=== PATIENT | male | born 1995 | race Caucasian/White ===

== ENCOUNTER 2017-03-30 21:06 | Inpatient (IN) | payer BC ==
[2017-03-30] MEDS ORDERED: Sodium Chloride 0.9% 1000 ML 1,000 ML IV STA (21:16)
[2017-03-30] MEDS ORDERED: Geodon 20 MG INJ IM ONE ×2 (21:16→21:21)
[2017-03-30] MEDS ORDERED: VERSED 5 MG/5 ML IV ONE ×2 (21:17→23:12)
[2017-03-30] MEDS ORDERED: Sodium Chloride 0.9% 1000 ML 1,000 ML ONE (21:21)
[2017-03-30] MEDS ORDERED: VERSED 5 MG/5 ML ONE ×2 (21:21→23:13)
[2017-03-30 21:26] LABS: BASOPHIL % 0.6 % (0.0-0.4); Eosinophil % 0.3 % (0.00-5.0); Granulocytes % 66.6 % (36.0-66.0); Lymphocytes % 24.6 % (24.0-44.0); Mean Cell Volume 86.8 fl (78-100); Monocytes % 7.9 % (0.0-12.0); Platelet Count 209 K/mm3 (150-450); Red Blood Count 5.24 M/mm3 (4.1-5.6); Red Cell Distribution Width 13.6 % (11.5-14.0)
[2017-03-30 21:34] LABS: Lactic Acid 4.8 (0.4-2.0)
[2017-03-30 21:42] LABS: VBG CARBOXYHEMOGLOBIN 1.6 % T HGB (0.0-6.9); VBG HCO3- 25.4 meq/L (22-28); VBG HEMOGLOBIN 16.1; VBG O2 SATURATION 90.2 (95-100); VBG POTASSIUM 3.9 (3.5-5.1); VBG pH 7.38 (7.32-7.42)
[2017-03-30 21:55] LABS: ALBUMIN 4.6 g/dL (3.4-5.0); ALKALINE PHOSPHATASE 80 U/L (46-116); ANION GAP 19.4 MEQ/L (5-15); BLOOD UREA NITROGEN 19 mg/dL (9-20); CHLORIDE 105 mEq/L (98-107); Carbon Dioxide 23.6 mEq/L (21-32); Glucose 107 MG/DL (70-110); Potassium 4.6 mEq/L (3.5-5.1); SGOT/AST 47 U/L (15-37); SGPT/ALT 38 U/L (12-78); SODIUM 143 mEq/L (136-145)
[2017-03-30 21:56] LABS: ETHYL ALCOHOL < 0.010 % (0.00-0.01)
[2017-03-30 21:58] LABS: ACETAMINOPHEN 276.5 ug/ml (10-30)
[2017-03-30] MEDS ORDERED: Lactated Ringers 1,000 ML IV ONE ×2 (22:02→22:48)
[2017-03-30 22:03] LABS: INR 1.12 (0.8-3.0); PROTIME 12.5 SECONDS (8.83-12.87)
[2017-03-30 22:24] LABS: ADD URINE CULTURE? NO (NO); Bacteria RARE /HPF (NEGATIVE); Bilirubin NEGATIVE (NEGATIVE); Blood 50 Ery/ul (0-5); COMPLETE URINE MICROSCOPIC? YES; Collection Type CATH; Glucose NEGATIVE (NEGATIVE); Leukocyte Esterase NEGATIVE (NEGATIVE)
--- NOTE | 2017-03-30 23:25 | ERPHSYRPT ---
- History of Present Illness Time Seen by Provider: 03/30/17 21:16 Source: family (mother), EMS Patient Subjective Stated Complaint: per mother, "I came home and found him on the floor in his bedroom face door. his speech was slurring and very disoriented. i saw him before i went to [employer] and he went to work at about 8: 30. he was normal than" Triage Nursing Assessment: GSC 15, unappropriate answers to questions, skin pink warm dry, moving all extremities, PERRLA Physician History: CC: found down Hx: 22 y/o healthy male patient found at home on floor by jerman. Unsure circumstances but he had been at the store looking ion the medication isle today and had texted a picture of a blue pill to a friend. No hx of drug use. No sign of injury. Pt gives no hx. No witnessed seizures. EMS noted tachycardia. Pt unable to give hx. Timing/Duration: today Severity: severe Allergies/Adverse Reactions: No Known Drug Allergies Allergy (Unverified 09/09/12 20:35) Home Medications: No Home Meds 09/09/12 [History] Hx Tetanus, Diphtheria Vaccination/Date Given: Yes Hx Influenza Vaccination/Date Given: No Hx Pneumococcal Vaccination/Date Given: No - Review of Systems Constitutional: No Fever Eyes: No Symptoms Respiratory: No Cough, No Dyspnea Cardiac: No Chest Pain Abdominal/Gastrointestinal: No Abdominal Pain, No Nausea, No Vomiting, No Diarrhea Musculoskeletal: No Injury Skin: No Rash Neurological: No Seizure All Other Systems: Unable due to condition - Past Medical History Pertinent Past Medical History: No Neurological History: No Pertinent History ENT History: No Pertinent History Cardiac History: No Pertinent History Respiratory History: No Pertinent History Endocrine Medical History: No Pertinent History Musculoskeletal History: No Pertinent History GI Medical History: No Pertinent History History: No Pertinent History Psycho-Social History: No Pertinent History Male Reproductive Disorders: No Pertinent History - Past Surgical History Past Surgical History: Yes Neuro Surgical History: No Pertinent History Cardiac: No Pertinent History Respiratory: No Pertinent History Gastrointestinal: No Pertinent History Genitourinary: No Pertinent History Musculoskeletal: Other Male Surgical History: No Pertinent History Other Surgical History: correted "flat feet" in second grade - Social History Smoking Status: Never smoker Exposure to second hand smoke: No Drug Use: none 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) - Nursing Vital Signs Nursing Vital Signs: Initial Vital Signs Pulse Rate 136 H 03/30/17 21:30 Respiratory Rate 28 H 03/30/17 21:30 Blood Pressure 172/143 03/30/17 21:30 O2 Sat by Pulse Oximetry 98 03/30/17 21:30 Pain Scale Pain Intensity 0 - Physical Exam General Appearance: alert (combative, tachycardia, agitated) Eye Exam: PERRL/EOMI Ears, Nose, Throat Exam: moist mucous membranes Neck Exam: normal inspection, supple Respiratory Exam: normal breath sounds Cardiovascular Exam: regular rate/rhythm Gastrointestinal/Abdomen Exam: soft, No tenderness, No distention Male Genitalia Exam: normal genitalia Back Exam: normal inspection Extremity Exam: normal inspection, normal range of motion Neurologic Exam: alert, other (uncooperative, moves all extremities) Skin Exam: warm, dry, No rash SpO2 Interpretation: normal SpO2: 97 Oxygen Delivery: Room Air - Course Nursing assessment & vital signs reviewed: Yes EKG Interpreted by Me: RATE ([id number]), Sinus Tach, NORMAL AXIS, NORMAL INTERVALS ( [id number]), NORMAL QRS, NORMAL ST-T - Radiology Exams cxr X-ray Interpretation: Reviewed by me, Negative - CT Exams head CT Interpretation: Negative, Tele-radiologist Report cervical CT Interpretation: Negative, Tele-radiologist Report Ordered Tests: Active Orders 24 hr Category Date Time Status CO2 Monitoring STAT Care 03/30/17 21:17 Completed Machine Ii Coremaker STAT Care 03/30/17 21:16 Active Machine Ii Coremaker STAT Care 03/30/17 21:17 Active EKG-ER Only STAT Care 03/30/17 21:16 Active IV Insertion STAT Care 03/30/17 21:16 Active NPO (ED) STAT Care 03/30/17 21:17 Active Pulse Oximetry (ED) STAT Care 03/30/17 21:17 Active CERVICAL SPINE WO CONTRAST [CT] Stat Exams 03/30/17 21:41 Taken CHEST 1 VIEW (PORTABLE) Stat Exams 03/30/17 23:27 Taken HEAD WITHOUT CONTRAST [CT] Stat Exams 03/30/17 21:41 Taken ACETAMINOPHEN Stat Lab 03/30/17 21:20 Completed ACETAMINOPHEN Stat Lab 03/30/17 23:30 Completed CBC W DIFF Stat Lab 03/30/17 21:20 Completed CK-Creatinine Phosphokinase Stat Lab 03/30/17 21:20 Completed CMP Stat Lab 03/30/17 21:20 Completed ETHYL ALCOHOL Stat Lab 03/30/17 21:20 Completed Lactic Acid Stat Lab 03/30/17 21:25 Completed Lactic Acid Stat Lab 03/30/17 23:30 Completed PROTIME WITH INR Stat Lab 03/30/17 21:30 Completed SALICYLATE Stat Lab 03/30/17 21:20 Completed UA W/ MICROSCOPIC Stat Lab 03/30/17 21:41 Completed Urine Triage Profile Stat Lab 03/30/17 21:41 Completed VENOUS BLOOD GAS Stat Lab 03/30/17 21:18 Completed Medication Summary Generic Name Dose Route Start Last Admin Trade Name Freq PRN Reason Stop Dose Admin Acetylcysteine 4,200 mg/ 521 mls @ 125 mls/hr 03/31/17 02:00 Dextrose IV 03/31/17 06:10 .Q4H11M ONE Acetylcysteine 12,600 mg/ 313 mls @ 250 mls/hr 03/31/17 00:17 Dextrose IV 03/31/17 01:32 .Q1H16M ONE Acetylcysteine 8,400 mg/ 1,042 mls @ 62.5 mls/hr 03/31/17 06:00 Dextrose IV 03/31/17 22:40 .[id number] ONE Discontinued Medications Generic Name Dose Route Start Last Admin Trade Name Freq PRN Reason Stop Dose Admin Sodium Chloride 1,000 mls @ 999 mls/hr 03/30/17 21:16 03/30/17 21:35 Sodium Chloride 0.9% 1000 Ml IV 03/30/17 22:16 999 mls/hr .Q1H1M STA Administration Sodium Chloride Confirm 03/30/17 21:21 Sodium Chloride 0.9% 1000 Ml Administered 03/30/17 21:22 Dose 1,000 mls @ ud .ROUTE .STK-MED ONE Lactated Ringer's 1,000 mls @ 999 mls/hr 03/30/17 22:02 03/30/17 22:49 Lactated Ringers IV 03/30/17 23:02 999 mls/hr .Q1H1M ONE Administration Lactated Ringer's Confirm 03/30/17 22:48 Lactated Ringers Administered 03/30/17 22:49 Dose 1,000 mls @ ud IV .STK-MED ONE Midazolam HCl 2.5 mg 03/30/17 21:17 03/30/17 21:28 Versed 5 Mg/5 Ml IV 03/30/17 21:18 2.5 mg STAT ONE Administration Midazolam HCl Confirm 03/30/17 21:21 Versed 5 Mg/5 Ml Administered 03/30/17 21:22 Dose 5 mg .ROUTE .STK-MED ONE Midazolam HCl 1 mg 03/30/17 23:12 03/30/17 23:17 Versed 5 Mg/5 Ml IV 03/30/17 23:13 1 mg STAT ONE Administration Midazolam HCl Confirm 03/30/17 23:13 Versed 5 Mg/5 Ml Administered 03/30/17 23:14 Dose 5 mg .ROUTE .STK-MED ONE Midazolam HCl 1 mg 03/31/17 00:23 Versed 5 Mg/5 Ml IV 03/31/17 00:24 STAT ONE Midazolam HCl Confirm 03/31/17 00:29 Versed 5 Mg/5 Ml Administered 03/31/17 00:30 Dose 5 mg .ROUTE .STK-MED ONE Ziprasidone 10 mg 03/30/17 21:16 03/30/17 21:27 Geodon 20 Mg Inj IM 03/30/17 21:17 10 mg STAT ONE Administration Ziprasidone Confirm 03/30/17 21:21 Geodon 20 Mg Inj Administered 03/30/17 21:22 Dose 20 mg IM .STK-MED ONE Lab/Rad Data: Laboratory Result Diagrams 03/30/17 21:20 03/30/17 21:20 Laboratory Results 03/30/17 03/30/17 03/30/17 Range/Units 23:30 23:30 21:41 WBC (4.0-10.5) K/mm3 RBC (4.1-5.6) M/mm3 Hgb (12.5-18.0) gm/dl Hct (42-50) % MCV (78-100) fl MCH (26-32) pg MCHC (32-36) g/dl RDW (11.5-14.0) % Plt Count (150-450) K/mm3 MPV (6-9.5) fl Gran % (36.0-66.0) % Lymphocytes % (24.0-44.0) % Monocytes % (0.0-12.0) % Eosinophils % (0.00-5.0) % Basophils % (0.0-0.4) % Basophils # (0-0.4) INR (0.8-3.0) VBG pH (7.32-7.42) VBG pCO2 at Pat Temp (42-55) mm/Hg VBG pO2 at Pat Temp (25-40) mm/Hg VBG HCO3 (22-28) meq/L VBG O2 Sat ([place]) (95-100) VBG Base Excess (-2.0-2.0) VBG Hemoglobin VBG Carboxyhemoglobin (0.0-6.9) % T HGB POC Potassium (3.5-5.1) Sodium (136-145) mEq/L Potassium (3.5-5.1) mEq/L Chloride (98-107) mEq/L Carbon Dioxide (21-32) mEq/L Anion Gap (5-15) MEQ/L BUN (9-20) mg/dL Creatinine (0.55-1.30) mg/dl Estimated GFR ML/MIN Glucose (70-110) MG/DL Lactic Acid 1.8 (0.4-2.0) Calcium (8.5-10.1) mg/dL Total Bilirubin (0.2-1.0) mg/dL AST (15-37) U/L ALT (12-78) U/L Alkaline Phosphatase (46-116) U/L Creatine Kinase (39-308) U/L Serum Total Protein (6.4-8.2) gm/dL Albumin (3.4-5.0) g/dL Ur Collection Type Urine Color (YELLOW) Urine Appearance (CLEAR) Urine pH (5-6) Ur Specific [place] (1.005-1.025) Urine Protein (Negative) Urine Ketones (NEGATIVE) Urine Blood (0-5) Carlos Manuel/ul Urine Nitrite (NEGATIVE) Urine Bilirubin (NEGATIVE) Urine Urobilinogen (0-1) mg/dL Ur Leukocyte Esterase (NEGATIVE) Urine Microscopic RBC (0-2) /HPF Urine Bacteria (NEGATIVE) /HPF Urine Glucose (NEGATIVE) mg/dL Salicylates (2.8-20.0) mg/dl Urine Opiates Level NEG. (NEGATIVE) Ur Methadone NEG. (NEGATIVE) Acetaminophen 270.1 H* (10-30) ug/ml Urine Barbiturates NEG. (NEGATIVE) Ur Phencyclidine (PCP) NEG. (NEGATIVE) Urine Amphetamine NEG. (NEGATIVE) U Benzodiazepine Level NEG. (NEGATIVE) Urine Cocaine NEG. (NEGATIVE) Urine Marijuana (THC) NEG. (NEGATIVE) Ethyl Alcohol (0.00-0.01) % Specimen Received 03/30/17 03/30/17 03/30/17 Range/Units 21:41 21:30 21:25 WBC (4.0-10.5) K/mm3 RBC (4.1-5.6) M/mm3 Hgb (12.5-18.0) gm/dl Hct (42-50) % MCV (78-100) fl MCH (26-32) pg MCHC (32-36) g/dl RDW (11.5-14.0) % Plt Count (150-450) K/mm3 MPV (6-9.5) fl Gran % (36.0-66.0) % Lymphocytes % (24.0-44.0) % Monocytes % (0.0-12.0) % Eosinophils % (0.00-5.0) % Basophils % (0.0-0.4) % Basophils # (0-0.4) INR 1.12 (0.8-3.0) VBG pH (7.32-7.42) VBG pCO2 at Pat Temp (42-55) mm/Hg VBG pO2 at Pat Temp (25-40) mm/Hg VBG HCO3 (22-28) meq/L VBG O2 Sat ([place]) (95-100) VBG Base Excess (-2.0-2.0) VBG Hemoglobin VBG Carboxyhemoglobin (0.0-6.9) % T HGB POC Potassium (3.5-5.1) Sodium (136-145) mEq/L Potassium (3.5-5.1) mEq/L Chloride (98-107) mEq/L Carbon Dioxide (21-32) mEq/L Anion Gap (5-15) MEQ/L BUN (9-20) mg/dL Creatinine (0.55-1.30) mg/dl Estimated GFR ML/MIN Glucose (70-110) MG/DL Lactic Acid 4.8 H (0.4-2.0) Calcium (8.5-10.1) mg/dL Total Bilirubin (0.2-1.0) mg/dL AST (15-37) U/L ALT (12-78) U/L Alkaline Phosphatase (46-116) U/L Creatine Kinase (39-308) U/L Serum Total Protein (6.4-8.2) gm/dL Albumin (3.4-5.0) g/dL Ur Collection Type CATH Urine Color YELLOW (YELLOW) Urine Appearance CLEAR (CLEAR) Urine pH 8.0 (5-6) Ur Specific [place] 1.005 (1.005-1.025) Urine Protein NEGATIVE (Negative) Urine Ketones NEGATIVE (NEGATIVE) Urine Blood 50 (0-5) Carlos Manuel/ul Urine Nitrite NEGATIVE (NEGATIVE) Urine Bilirubin NEGATIVE (NEGATIVE) Urine Urobilinogen NORMAL (0-1) mg/dL Ur Leukocyte Esterase NEGATIVE (NEGATIVE) Urine Microscopic RBC 0-2 (0-2) /HPF Urine Bacteria RARE (NEGATIVE) /HPF Urine Glucose NEGATIVE (NEGATIVE) mg/dL Salicylates (2.8-20.0) mg/dl Urine Opiates Level (NEGATIVE) Ur Methadone (NEGATIVE) Acetaminophen (10-30) ug/ml Urine Barbiturates (NEGATIVE) Ur Phencyclidine (PCP) (NEGATIVE) Urine Amphetamine (NEGATIVE) U Benzodiazepine Level (NEGATIVE) Urine Cocaine (NEGATIVE) Urine Marijuana (THC) (NEGATIVE) Ethyl Alcohol (0.00-0.01) % Specimen Received 03/30/17:2141 03/30/17 03/30/17 03/30/17 Range/Units 21:20 21:20 21:20 WBC 8.0 (4.0-10.5) K/mm3 RBC 5.24 (4.1-5.6) M/mm3 Hgb 15.2 (12.5-18.0) gm/dl Hct 45.5 (42-50) % MCV 86.8 (78-100) fl MCH 29.0 (26-32) pg MCHC 33.4 (32-36) g/dl RDW 13.6 (11.5-14.0) % Plt Count 209 (150-450) K/mm3 MPV 11.0 H (6-9.5) fl Gran % 66.6 H (36.0-66.0) % Lymphocytes % 24.6 (24.0-44.0) % Monocytes % 7.9 (0.0-12.0) % Eosinophils % 0.3 (0.00-5.0) % Basophils % 0.6 (0.0-0.4) % Basophils # 0.05 (0-0.4) INR (0.8-3.0) VBG pH (7.32-7.42) VBG pCO2 at Pat Temp (42-55) mm/Hg VBG pO2 at Pat Temp (25-40) mm/Hg VBG HCO3 (22-28) meq/L VBG O2 Sat ([place]) (95-100) VBG Base Excess (-2.0-2.0) VBG Hemoglobin VBG Carboxyhemoglobin (0.0-6.9) % T HGB POC Potassium (3.5-5.1) Sodium 143 (136-145) mEq/L Potassium 4.6 (3.5-5.1) mEq/L Chloride 105 (98-107) mEq/L Carbon Dioxide 23.6 (21-32) mEq/L Anion Gap 19.4 H (5-15) MEQ/L BUN 19 (9-20) mg/dL Creatinine 1.40 H (0.55-1.30) mg/dl Estimated GFR > 60 ML/MIN Glucose 107 (70-110) MG/DL Lactic Acid (0.4-2.0) Calcium 9.2 (8.5-10.1) mg/dL Total Bilirubin 0.40 (0.2-1.0) mg/dL AST 47 H (15-37) U/L ALT 38 (12-78) U/L Alkaline Phosphatase 80 (46-116) U/L Creatine Kinase 919 H (39-308) U/L Serum Total Protein 8.0 (6.4-8.2) gm/dL Albumin 4.6 (3.4-5.0) g/dL Ur Collection Type Urine Color (YELLOW) Urine Appearance (CLEAR) Urine pH (5-6) Ur Specific [place] (1.005-1.025) Urine Protein (Negative) Urine Ketones (NEGATIVE) Urine Blood (0-5) Carlos Manuel/ul Urine Nitrite (NEGATIVE) Urine Bilirubin (NEGATIVE) Urine Urobilinogen (0-1) mg/dL Ur Leukocyte Esterase (NEGATIVE) Urine Microscopic RBC (0-2) /HPF Urine Bacteria (NEGATIVE) /HPF Urine Glucose (NEGATIVE) mg/dL Salicylates < 2.8 L (2.8-20.0) mg/dl Urine Opiates Level (NEGATIVE) Ur Methadone (NEGATIVE) Acetaminophen 276.5 H* (10-30) ug/ml Urine Barbiturates (NEGATIVE) Ur Phencyclidine (PCP) (NEGATIVE) Urine Amphetamine (NEGATIVE) U Benzodiazepine Level (NEGATIVE) Urine Cocaine (NEGATIVE) Urine Marijuana (THC) (NEGATIVE) Ethyl Alcohol < 0.010 (0.00-0.01) % Specimen Received 03/30/17 Range/Units 21:18 WBC (4.0-10.5) K/mm3 RBC (4.1-5.6) M/mm3 Hgb (12.5-18.0) gm/dl Hct (42-50) % MCV (78-100) fl MCH (26-32) pg MCHC (32-36) g/dl RDW (11.5-14.0) % Plt Count (150-450) K/mm3 MPV (6-9.5) fl Gran % (36.0-66.0) % Lymphocytes % (24.0-44.0) % Monocytes % (0.0-12.0) % Eosinophils % (0.00-5.0) % Basophils % (0.0-0.4) % Basophils # (0-0.4) INR (0.8-3.0) VBG pH 7.38 (7.32-7.42) VBG pCO2 at Pat Temp 43 (42-55) mm/Hg VBG pO2 at Pat Temp 52 H (25-40) mm/Hg VBG HCO3 25.4 (22-28) meq/L VBG O2 Sat ([place]) 90.2 L (95-100) VBG Base Excess 0.0 (-2.0-2.0) VBG Hemoglobin 16.1 VBG Carboxyhemoglobin 1.6 (0.0-6.9) % T HGB POC Potassium 3.9 (3.5-5.1) Sodium (136-145) mEq/L Potassium (3.5-5.1) mEq/L Chloride (98-107) mEq/L Carbon Dioxide (21-32) mEq/L Anion Gap (5-15) MEQ/L BUN (9-20) mg/dL Creatinine (0.55-1.30) mg/dl Estimated GFR ML/MIN Glucose (70-110) MG/DL Lactic Acid (0.4-2.0) Calcium (8.5-10.1) mg/dL Total Bilirubin (0.2-1.0) mg/dL AST (15-37) U/L ALT (12-78) U/L Alkaline Phosphatase (46-116) U/L Creatine Kinase (39-308) U/L Serum Total Protein (6.4-8.2) gm/dL Albumin (3.4-5.0) g/dL Ur Collection Type Urine Color (YELLOW) Urine Appearance (CLEAR) Urine pH (5-6) Ur Specific [place] (1.005-1.025) Urine Protein (Negative) Urine Ketones (NEGATIVE) Urine Blood (0-5) Carlos Manuel/ul Urine Nitrite (NEGATIVE) Urine Bilirubin (NEGATIVE) Urine Urobilinogen (0-1) mg/dL Ur Leukocyte Esterase (NEGATIVE) Urine Microscopic RBC (0-2) /HPF Urine Bacteria (NEGATIVE) /HPF Urine Glucose (NEGATIVE) mg/dL Salicylates (2.8-20.0) mg/dl Urine Opiates Level (NEGATIVE) Ur Methadone (NEGATIVE) Acetaminophen (10-30) ug/ml Urine Barbiturates (NEGATIVE) Ur Phencyclidine (PCP) (NEGATIVE) Urine Amphetamine (NEGATIVE) U Benzodiazepine Level (NEGATIVE) Urine Cocaine (NEGATIVE) Urine Marijuana (THC) (NEGATIVE) Ethyl Alcohol (0.00-0.01) % Specimen Received - Progress Progress Note: 03/30/17 23:24 Pt was given IM geodon and IV versed with improvement in agitation. Afebrile and without any focal source if infection. CT neg. IVF bolus given and HR improved. Will recheck APAP and consult poison center. He appears to have ingestion causing agitation and tachycardia. 03/31/17 00:34 APAP still elevated. Intermittent tachy and hypertensive. Called [facility] and they advised start IV acetadote, benzos. Called Dr Prather for admission. No sign of infection. Counseled pt/family regarding: lab results, diagnosis, need for follow-up, rad results - Departure Time of Disposition: 00:35 Departure Disposition: In-patient Admission (ICU) Clinical Impression: Acetaminophen toxicity, Altered mental status Condition: Serious Critical Care Time: Yes Critical Care Time(excluding separately billable procedures): 30-74 minutes
[2017-03-31] MEDS ORDERED: WATER IV ONE ×3 (00:17→06:00)
[2017-03-31] MEDS ORDERED: ACETADOTE IV ONE ×3 (00:17→06:00)
[2017-03-31] MEDS ORDERED: DEXTROSE IV ONE ×3 (00:17→06:00)
[2017-03-31] MEDS ORDERED: VERSED 5 MG/5 ML IV ONE (00:23)
[2017-03-31] MEDS ORDERED: VERSED 5 MG/5 ML ONE (00:29)
[2017-03-31] MEDS ORDERED: Dextrose 5%/Water IV Soln. 250 ML 250 ML IV ONE (00:37)
[2017-03-31] MEDS ORDERED: Acetadote IV 200 MG/ML IV ONE ×2 (00:37→03:44)
[2017-03-31] MEDS ORDERED: Dextrose 5%/Water IV Soln. 500 ML 500 ML IV ONE (00:38)
[2017-03-31] MEDS ORDERED: Ativan 2 MG/1 ML VIAL ONE (01:01)
[2017-03-31] MEDS: Dextrose 5%-Lr IV Solution 1000 ML 1,000 ML IV SCH ×3 (01:41→17:59)
[2017-03-31] MEDS: VALIUM 10 MG/2 ML SYRINGE IV PRN ×5 (02:51→10:29)
[2017-03-31] MEDS ORDERED: Dextrose 5%/Water IV Soln. 1000 ML 1,000 ML IV ONE (03:32)
[2017-03-31] MEDS ORDERED: Phenergan 25 MG INJ IV PRN (05:28)
--- NOTE | 2017-03-31 08:12 | PCM.HP ---
History of Present Illness - Chief Complaint Chief Complaint: AMS, Apap toxicity History of Present Illness: is a 22 year old male who was found down by family with an unknown ingestion apparently. He was brought to the ER, brain and neck CT were negative. Acetaminophen level was elevated and he was agitated, he has a previous history of depression in the past but otherwise is healthy and has no medical history. Currently he is not on any medication, his step-father apparently found a bottle of generic acetaminophen PM but again unsure how much he took. - Review of Systems All Other Systems: Unable due to condition (does not answer questions appropriately, having visual hallucinations) Medications & Allergies Home Medications: Home Medication List No Reportable Medications [No Reported Medications] 03/31/17 [History Confirmed 03/31/17] Allergies/Adverse Reactions: Allergies Allergy/AdvReac Type Severity Reaction Status Date / Time No Known Drug Allergies Allergy Unverified 09/09/12 20:35 - Past Medical History Past Medical History: No Neurological History: No Pertinent History ENT History: No Pertinent History Cardiac History: No Pertinent History Respiratory History: No Pertinent History Endocrine Medical History: No Pertinent History Musculoskelatal History: No Pertinent History GI Medical History: No Pertinent History History: No Pertinent History Pyscho-Social History: No Pertinent History Male Reproductive Disorders: No Pertinent History - Past Surgical History Past Surgical History: Yes Neuro Surgical History: No Pertinent History Cardiac History: No Pertinent History Respiratory Surgery: No Pertinent History GI Surgical History: No Pertinent History Genitourinary Surgical Hx: No Pertinent History Musculskeletal Surgical Hx: Other Male Surgical History: No Pertinent History Other Surgical History: correted "flat feet" in second grade - Social History Smoking Status: Never smoker Exposure to second hand smoke: No Alcohol: None Drug Use: none - Physical Exam Vital Signs: Vital Signs - 24 hr Temp Pulse Resp BP Pulse Ox 03/31/17 06:00 97.5 F 104 H 26 H 148/82 96 03/31/17 04:15 92 H 03/31/17 04:07 99 H 14 97 03/31/17 04:00 92 H 20 130/86 96 03/31/17 02:04 97.8 F 97 H 29 H 140/85 97 General Appearance: no apparent distress, alert Neurologic Exam: disoriented Eye Exam: PERRL/EOMI, eyes nml inspection Respiratory Exam: normal breath sounds, lungs clear, No respiratory distress Cardiovascular Exam: regular rate/rhythm, normal heart sounds, normal peripheral pulses Gastrointestinal/Abdomen Exam: soft, normal bowel sounds, No tenderness, No mass Extremity Exam: normal inspection, normal range of motion, pelvis stable Skin Exam: normal color, warm, dry, No rash Assessment/Plan (1) Agitation requiring sedation protocol Current Visit: Yes Status: Acute Assessment & Plan: appears secondary to benadryl toxicity, poison control was consulted in ER and recommended treatment with IV benzodiazepenes for agitation and acetadote, will continue to monitor Code(s): R45.1 - RESTLESSNESS AND AGITATION (2) Acetaminophen toxicity Current Visit: Yes Status: Acute Assessment & Plan: repeat LFT's Code(s): T39.1X1A - POISONING BY 4-AMINOPHENOL DERIVATIVES, ACCIDENTAL, INIT (3) Altered mental status Current Visit: Yes Status: Acute Code(s): R41.82 - ALTERED MENTAL STATUS, UNSPECIFIED
--- NOTE | 2017-03-31 08:37 | XRAY ---
Indication: Altered mental status. Comparison: None Portable apical lordotic chest underinflated and clear. Heart and mediastinal structures within normal limits. Bony thorax intact. Impression: Nonacute underinflated chest.
--- NOTE | 2017-03-31 08:39 | XRAY ---
Indication: Altered mental status. Found on floor. Slurred speech. Multiple contiguous axial images obtained through the head without contrast. Comparison: None Normal appearing brain parenchyma, ventricles, and bony calvarium. Visualized paranasal sinuses and mastoid air cells are clear. Impression: Normal CT head without contrast exam. Comment: Preliminary interpretation was made by [facility]. No discrepancy. CT DI 62.53
--- NOTE | 2017-03-31 08:39 | XRAY ---
Indication: Altered mental status. Found on floor. Slurred speech. Multiple contiguous axial images obtained through the cervical spine. Sagittal and coronal reformatted images obtained. Comparison: None Axial negative for acute fracture, suspicious bony lesions, or spinal canal stenosis. Sagittal and coronal reformatted images demonstrate normal alignment with disc spaces preserved. No acute compression fracture, subluxation, or jumped facet. Normal appearing craniocervical junction. Visualized noncontrasted soft tissues are unremarkable. Impression: Negative CT cervical spine. Comment: Preliminary interpretation was made by [facility]. No discrepancy. CT DI 44.77
[2017-03-31 09:58] LABS: ALKALINE PHOSPHATASE 70 U/L (46-116); ANION GAP 16.6 MEQ/L (5-15); BLOOD UREA NITROGEN 12 mg/dL (9-20); CHLORIDE 106 mEq/L (98-107); Carbon Dioxide 22.9 mEq/L (21-32); Glucose 177 MG/DL (70-110); Potassium 3.3 mEq/L (3.5-5.1); SGOT/AST 373 U/L (15-37); SGPT/ALT 346 U/L (12-78); SODIUM 142 mEq/L (136-145); Total Protein 7.1 gm/dL (6.4-8.2)
[2017-03-31] MEDS ORDERED: Ativan 2 MG/1 ML VIAL IV PRN (11:03)
[2017-03-31] MEDS ORDERED: Geodon 20 MG INJ IM ONE ×2 (12:42→14:00)
[2017-03-31 22:23] LABS: INR 1.6 (0.8-3.0); PROTIME 17.9 SECONDS (8.83-12.87)
[2017-03-31 23:45] LABS: ALBUMIN 3.7 g/dL (3.4-5.0); ALKALINE PHOSPHATASE 70 U/L (46-116); BLOOD UREA NITROGEN 7 mg/dL (9-20); CHLORIDE 109 mEq/L (98-107); Carbon Dioxide 22.4 mEq/L (21-32); Glucose 128 MG/DL (70-110); Potassium 3.5 mEq/L (3.5-5.1); SGOT/AST 123 U/L (15-37); SGPT/ALT 250 U/L (12-78); SODIUM 145 mEq/L (136-145); Total Protein 6.5 gm/dL (6.4-8.2)
[2017-04-01] MEDS: Dextrose 5%-Lr IV Solution 1000 ML 1,000 ML IV SCH ×3 (01:33→16:35)
[2017-04-01 05:28] LABS: BASOPHIL % 0.3 % (0.0-0.4); Eosinophil % 0.6 % (0.00-5.0); Lymphocytes % 18.1 % (24.0-44.0); Mean Cell Volume 87.4 fl (78-100); Mean Corpuscular Hemoglobin 28.6 pg (26-32); Mean Platelet Volume 11.3 fl (6-9.5); Platelet Count 188 K/mm3 (150-450); Red Blood Count 4.76 M/mm3 (4.1-5.6); Red Cell Distribution Width 13.8 % (11.5-14.0); White Blood Count 9.6 K/mm3 (4.0-10.5)
[2017-04-01 06:05] LABS: ALBUMIN 3.5 g/dL (3.4-5.0); ALKALINE PHOSPHATASE 65 U/L (46-116); ANION GAP 12.3 MEQ/L (5-15); BLOOD UREA NITROGEN 6 mg/dL (9-20); CHLORIDE 109 mEq/L (98-107); Carbon Dioxide 25.7 mEq/L (21-32); Glucose 108 MG/DL (70-110); MAGNESIUM 1.7 mg/dL (1.8-2.4); Potassium 4.1 mEq/L (3.5-5.1); SGOT/AST 127 U/L (15-37); SGPT/ALT 243 U/L (12-78); SODIUM 143 mEq/L (136-145); Total Protein 6.3 gm/dL (6.4-8.2)
--- NOTE | 2017-04-01 09:02 | PCM.NOTE ---
Date and Time: 04/01/17 0857 Subjective Assessment: Pt is alert and oriented this morning. He remembers very little of the past 2 days. His dad is present in the room and was with the pt when he bought the tylenol pm. Pt was taken to the ER about 4 hours later. Pt's dad notes that pt had looked up the effects of Tylenol overdose on the internet about a week prior to the ingestion. Pt does admit to a previous hx of suicide attempt 5-6 years ago. He says the antidepressants he has been prescribed in the past make him feel "loopy." - Review of Systems Constitutional: No Fever Abdominal/Gastrointestinal: No Abdominal Pain Objective Exam General Appearance: no apparent distress Neurologic Exam: alert, oriented x 3, cooperative Skin Exam: normal color, warm, dry Respiratory Exam: normal breath sounds, lungs clear, No crackles/rales, No rhonchi, No wheezing Cardiovascular Exam: regular rate/rhythm, normal heart sounds, No murmur Gastrointestinal/Abdomen Exam: soft, normal bowel sounds, No tenderness, No distention, No mass, No guarding, No rebound Extremity Exam: normal inspection, No pedal edema, No swelling OBJECTIVE DATA Vital Signs: Vital Signs - 24 hr Temp Pulse Resp BP Pulse Ox 04/01/17 08:00 98.8 F 92 H 19 145/75 97 04/01/17 04:00 97.7 F 73 18 145/75 04/01/17 00:01 71 04/01/17 00:00 98.2 F 71 21 177/82 03/31/17 22:00 73 23 03/31/17 20:00 98.3 F 91 H 24 156/86 98 03/31/17 17:56 98.5 F 96 H 20 153/88 100 03/31/17 16:00 98.9 F 97 H 20 154/88 97 03/31/17 14:15 89 20 98 03/31/17 12:00 98.3 F 100 H 24 144/87 98 03/31/17 10:00 99.1 F 100 H 24 169/84 98 Pain Assessment - Last Documented Pain Intensity 0 [facility] Intake and Output: Intake & Output 03/29/17 03/30/17 03/31/17 04/01/17 11:59 11:59 11:59 11:59 Intake Total 1050 5285 Output Total 300 1000 Balance 750 4285 Weight 84.725 kg Lab Results: Lab Results-Last 24 Hours 03/31/17 03/31/17 03/31/17 Range/Units 08:40 21:30 21:33 WBC (4.0-10.5) K/mm3 RBC (4.1-5.6) M/mm3 Hgb (12.5-18.0) gm/dl Hct (42-50) % MCV (78-100) fl MCH (26-32) pg MCHC (32-36) g/dl RDW (11.5-14.0) % Plt Count (150-450) K/mm3 MPV (6-9.5) fl Gran % (36.0-66.0) % Lymphocytes % (24.0-44.0) % Monocytes % (0.0-12.0) % Eosinophils % (0.00-5.0) % Basophils % (0.0-0.4) % Basophils # (0-0.4) INR (0.8-3.0) Sodium 142 145 (136-145) mEq/L Potassium 3.3 L 3.5 (3.5-5.1) mEq/L Chloride 106 109 H (98-107) mEq/L Carbon Dioxide 22.9 22.4 (21-32) mEq/L Anion Gap 16.6 H 17.0 H (5-15) MEQ/L BUN 12 7 L (9-20) mg/dL Creatinine 1.25 1.29 (0.55-1.30) mg/dl Estimated GFR > 60 > 60 ML/MIN Glucose 177 H 128 H (70-110) MG/DL Calcium 9.0 8.8 (8.5-10.1) mg/dL Magnesium (1.8-2.4) mg/dL Total Bilirubin 1.10 H 0.70 (0.2-1.0) mg/dL AST 373 H 123 H (15-37) U/L ALT 346 H 250 H (12-78) U/L Alkaline Phosphatase 70 70 (46-116) U/L Serum Total Protein 7.1 6.5 (6.4-8.2) gm/dL Albumin 4.0 3.7 (3.4-5.0) g/dL Acetaminophen 33.4 H (10-30) ug/ml 03/31/17 04/01/17 04/01/17 Range/Units 21:33 05:00 05:00 WBC 9.6 (4.0-10.5) K/mm3 RBC 4.76 (4.1-5.6) M/mm3 Hgb 13.6 (12.5-18.0) gm/dl Hct 41.6 L (42-50) % MCV 87.4 (78-100) fl MCH 28.6 (26-32) pg MCHC 32.7 (32-36) g/dl RDW 13.8 (11.5-14.0) % Plt Count 188 (150-450) K/mm3 MPV 11.3 H (6-9.5) fl Gran % 70.0 H (36.0-66.0) % Lymphocytes % 18.1 L (24.0-44.0) % Monocytes % 11.0 (0.0-12.0) % Eosinophils % 0.6 (0.00-5.0) % Basophils % 0.3 (0.0-0.4) % Basophils # 0.03 (0-0.4) INR 1.60 (0.8-3.0) Sodium 143 (136-145) mEq/L Potassium 4.1 (3.5-5.1) mEq/L Chloride 109 H (98-107) mEq/L Carbon Dioxide 25.7 (21-32) mEq/L Anion Gap 12.3 (5-15) MEQ/L BUN 6 L (9-20) mg/dL Creatinine 1.12 (0.55-1.30) mg/dl Estimated GFR > 60 ML/MIN Glucose 108 (70-110) MG/DL Calcium 8.8 (8.5-10.1) mg/dL Magnesium 1.7 L (1.8-2.4) mg/dL Total Bilirubin 0.90 (0.2-1.0) mg/dL AST 127 H (15-37) U/L ALT 243 H (12-78) U/L Alkaline Phosphatase 65 (46-116) U/L Serum Total Protein 6.3 L (6.4-8.2) gm/dL Albumin 3.5 (3.4-5.0) g/dL Acetaminophen (10-30) ug/ml 04/01/17 Range/Units 05:00 WBC (4.0-10.5) K/mm3 RBC (4.1-5.6) M/mm3 Hgb (12.5-18.0) gm/dl Hct (42-50) % MCV (78-100) fl MCH (26-32) pg MCHC (32-36) g/dl RDW (11.5-14.0) % Plt Count (150-450) K/mm3 MPV (6-9.5) fl Gran % (36.0-66.0) % Lymphocytes % (24.0-44.0) % Monocytes % (0.0-12.0) % Eosinophils % (0.00-5.0) % Basophils % (0.0-0.4) % Basophils # (0-0.4) INR (0.8-3.0) Sodium (136-145) mEq/L Potassium (3.5-5.1) mEq/L Chloride (98-107) mEq/L Carbon Dioxide (21-32) mEq/L Anion Gap (5-15) MEQ/L BUN (9-20) mg/dL Creatinine (0.55-1.30) mg/dl Estimated GFR ML/MIN Glucose (70-110) MG/DL Calcium (8.5-10.1) mg/dL Magnesium (1.8-2.4) mg/dL Total Bilirubin (0.2-1.0) mg/dL AST (15-37) U/L ALT (12-78) U/L Alkaline Phosphatase (46-116) U/L Serum Total Protein (6.4-8.2) gm/dL Albumin (3.4-5.0) g/dL Acetaminophen 8.2 L (10-30) ug/ml Assessment/Plan (1) Suicide attempt Current Visit: Yes Status: Acute Assessment & Plan: Consult with [facility] today. (2) Elevated LFTs Current Visit: Yes Status: Acute Assessment & Plan: persistent today. INR was 1.12 at admission and 1.6 yesterday. Will recheck today. I will discuss with GI regarding need for any further treatment. Code(s): R79.89 - OTHER SPECIFIED ABNORMAL FINDINGS OF BLOOD CHEMISTRY (3) Acetaminophen toxicity Current Visit: Yes Status: Acute Qualifiers: Encounter type: subsequent encounter Injury intent: intentional self-harm Qualified Code(s): T39.1X2D - Poisoning by 4-Aminophenol derivatives, intentional self-harm, subsequent encounter Assessment & Plan: This appears to have been premeditated suicide attempt. Mucomyst was given in the standard protocol for 21 hours. Poison control called and spoke with nursing staff this morning. Code(s): T39.1X1A - POISONING BY 4-AMINOPHENOL DERIVATIVES, ACCIDENTAL, INIT (4) Altered mental status Current Visit: Yes Status: Resolved Qualifiers: Altered mental status type: disorientation Qualified Code(s): R41.0 - Disorientation, unspecified Code(s): R41.82 - ALTERED MENTAL STATUS, UNSPECIFIED
[2017-04-02 05:57] LABS: INR 1.31 (0.8-3.0); PROTIME 14.6 SECONDS (8.83-12.87)
[2017-04-02 05:59] LABS: Mean Cell Volume 88.4 fl (78-100); Mean Corpuscular Hemoglobin 28.7 pg (26-32); Mean Platelet Volume 11.2 fl (6-9.5); Platelet Count 177 K/mm3 (150-450); Red Blood Count 4.74 M/mm3 (4.1-5.6); Red Cell Distribution Width 14.1 % (11.5-14.0); White Blood Count 9.9 K/mm3 (4.0-10.5)
[2017-04-02 06:20] LABS: ALBUMIN 3.5 g/dL (3.4-5.0); ALKALINE PHOSPHATASE 68 U/L (46-116); BLOOD UREA NITROGEN 10 mg/dL (9-20); CHLORIDE 109 mEq/L (98-107); Carbon Dioxide 27.7 mEq/L (21-32); Glucose 103 MG/DL (70-110); SGOT/AST 36 U/L (15-37); SGPT/ALT 157 U/L (12-78); SODIUM 145 mEq/L (136-145); Total Protein 6.2 gm/dL (6.4-8.2)
--- NOTE | 2017-04-02 09:30 | PCM.DS ---
Discharge Summary Date of Admission: 03/31/17 01:11 Admitting Physician: EDIS HUMPHREYS Primary Care Provider: EDIS HUMPHREYS Allergies Allergies No Known Drug Allergies Allergy (Unverified 09/09/12 20:35) Hospital Summary - Hospital Course Hospital Course: patient was admitted with intentional overdose of acetaminophen pm, he was agitated and had elevated acetaminophen level on arrival. he was given acetadote per protocol and with consultation with poison control. he has been normal mentally for more than 24 hours, LFT's have nearly completely normalized. AST is normal, ALT minimally elevated. he had a telemental health consult and was recommended to f/u with counseling as an outpatient, this has been arranged at 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 he regrets his suicide attempt, feels well mentally and has an excellent support system upon discharge. - Vitals & Intake/Output Vital Signs: Vital Signs Temperature 98.3 F 04/02/17 05:30 Pulse Rate 78 04/02/17 04:55 Respiratory Rate 19 04/02/17 04:55 Blood Pressure 151/83 04/02/17 05:30 O2 Sat by Pulse Oximetry 96 04/01/17 23:08 Intake & Output: Intake & Output 03/30/17 03/31/17 04/01/17 04/02/17 11:59 11:59 11:59 11:59 Intake Total 1050 5285 3233 Output Total 300 1000 Balance 750 4285 3233 Weight 84.725 kg 86.5 kg - Lab Result Diagrams: 04/02/17 05:25 04/02/17 05:25 Lab Results-Last 24 Hrs: Lab Results-Last 24 Hours 04/02/17 04/02/17 04/02/17 Range/Units 05:25 05:25 05:25 WBC 9.9 (4.0-10.5) K/mm3 RBC 4.74 (4.1-5.6) M/mm3 Hgb 13.6 (12.5-18.0) gm/dl Hct 41.9 L (42-50) % MCV 88.4 (78-100) fl MCH 28.7 (26-32) pg MCHC 32.5 (32-36) g/dl RDW 14.1 H (11.5-14.0) % Plt Count 177 (150-450) K/mm3 MPV 11.2 H (6-9.5) fl INR 1.31 (0.8-3.0) Sodium 145 (136-145) mEq/L Potassium 4.0 (3.5-5.1) mEq/L Chloride 109 H (98-107) mEq/L Carbon Dioxide 27.7 (21-32) mEq/L Anion Gap 12.0 (5-15) MEQ/L BUN 10 (9-20) mg/dL Creatinine 1.08 (0.55-1.30) mg/dl Estimated GFR > 60 ML/MIN Glucose 103 (70-110) MG/DL Calcium 9.0 (8.5-10.1) mg/dL Total Bilirubin 0.40 (0.2-1.0) mg/dL AST 36 (15-37) U/L ALT 157 H (12-78) U/L Alkaline Phosphatase 68 (46-116) U/L Serum Total Protein 6.2 L (6.4-8.2) gm/dL Albumin 3.5 (3.4-5.0) g/dL Acetaminophen (10-30) ug/ml 04/02/17 Range/Units 05:25 WBC (4.0-10.5) K/mm3 RBC (4.1-5.6) M/mm3 Hgb (12.5-18.0) gm/dl Hct (42-50) % MCV (78-100) fl MCH (26-32) pg MCHC (32-36) g/dl RDW (11.5-14.0) % Plt Count (150-450) K/mm3 MPV (6-9.5) fl INR (0.8-3.0) Sodium (136-145) mEq/L Potassium (3.5-5.1) mEq/L Chloride (98-107) mEq/L Carbon Dioxide (21-32) mEq/L Anion Gap (5-15) MEQ/L BUN (9-20) mg/dL Creatinine (0.55-1.30) mg/dl Estimated GFR ML/MIN Glucose (70-110) MG/DL Calcium (8.5-10.1) mg/dL Total Bilirubin (0.2-1.0) mg/dL AST (15-37) U/L ALT (12-78) U/L Alkaline Phosphatase (46-116) U/L Serum Total Protein (6.4-8.2) gm/dL Albumin (3.4-5.0) g/dL Acetaminophen 2.1 L (10-30) ug/ml Discharge Exam General Appearance: no apparent distress, alert Skin Exam: normal color, warm, dry Respiratory Exam: normal breath sounds, lungs clear, No respiratory distress Cardiovascular Exam: regular rate/rhythm, normal heart sounds Gastrointestinal/Abdomen Exam: soft, No tenderness, No mass Extremity Exam: normal inspection, normal range of motion Final Diagnosis/Problem List - Final Discharge Diagnosis/Problem (1) Agitation requiring sedation protocol Current Visit: Yes Status: Acute Assessment & Plan: resolved (2) Acetaminophen toxicity Current Visit: Yes Status: Acute Assessment & Plan: resolving at this time, I do not anticipate any half-way effects, will repeat a CBC, CMP and INR when he follows up next week (3) Altered mental status Current Visit: Yes Status: Resolved - Discharge Disposition: Home, Self-Care Condition: Good Prescriptions: No Action No Reportable Medications [No Reported Medications] Instructions: Depression -- Adult, Acetaminophen Poisoning, Drug Overdose in Adults Additional Instructions: if you have constipation at home you may take over the counter docusate sodium 100mg twice daily as needed, if you still have constipation you may try dulcolax or magnesium citrate which are available over the counter. if you have any suicidal thoughts, severe abdominal pain, nausea/vomiting, jaundice (skin turning yellow), confusion or other new symptoms you need to return to the emergency department as soon as possible. Follow up with: EDIS HUMPHREYS MD [Primary Care Provider] - 1 Week Forms: Discharge Instructions
[2017-04-02 09:33] VITALS: BP 152/80; PULSE 92; O2SAT 97
[2017-04-02 12:15] LABS: HEPATITIS B VIRUS CORE TOT AB Non Reactive (Non Reactive)
[2017-04-02 12:19] LABS: Hepatitis B Surface Ab.Quant. 62.59 mIU/mL (0.00-8.49)
== END 2017-04-02 09:50 | disposition home or self-care (01) | DRG 918 ==
LOC: ED 21:06 → UNDOADMIN 03-31 01:11 → ICU 03-31 01:11
PROVIDERS: ADMIT Family Medicine; ATTEND Family Medicine
DX: T39.1X2A Poisoning by 4-Aminophenol derivatives, intentional self-harm, initial encounter (principal); R45.1 Restlessness and agitation; R94.5 Abnormal results of liver function studies
CPT/HCPCS: 36000; 36415; 70450; 71010; 72125; 80053; 80074; 80307; 81000; 82550; 82805; 83605; 83735; 85025; 85027; 85610; 90791; 93005; 93041; 94770; 96360; 96361; 96372; 96374; 96376; 99285; 99291; 99292; G0481; J0132; J2060; J2250; J2550; J3360; J3486; P9612; Q3014

== ENCOUNTER 2020-05-21 01:24 | Emergency (ER) | payer BC ==
--- NOTE | 2020-05-21 01:59 | ERPHSYRPT ---
- History of Present Illness Source: patient Exam Limitations: no limitations Hx Tetanus, Diphtheria Vaccination/Date Given: Yes Hx Influenza Vaccination/Date Given: No Hx Pneumococcal Vaccination/Date Given: No <SHANE BOLAND - Last Filed: 05/21/20 07:33> <JOSÉ MIGUEL MENDOZA - Last Filed: 05/21/20 14:16> - History of Present Illness Time Seen by Provider: 05/21/20 01:50 Physician History: Pt states for the past 4.5 hours he has had thoughts of self harm; denies chest pain, shortness of air, fever, abdominal pain. (SHANE BOLAND) Allergies/Adverse Reactions: No Known Drug Allergies Allergy (Unverified 05/21/20 01:33) Home Medications: Lisdexamfetamine Dimesylate [Vyvanse] 1 tab PO DAILY 05/21/20 [History] - Past Medical History Pertinent Past Medical History: No Neurological History: No Pertinent History ENT History: No Pertinent History Cardiac History: No Pertinent History Respiratory History: No Pertinent History Endocrine Medical History: No Pertinent History Musculoskeletal History: No Pertinent History GI Medical History: No Pertinent History History: No Pertinent History Psycho-Social History: No Pertinent History Male Reproductive Disorders: No Pertinent History - Past Surgical History Past Surgical History: Yes Neuro Surgical History: No Pertinent History Cardiac: No Pertinent History Respiratory: No Pertinent History Gastrointestinal: No Pertinent History Genitourinary: No Pertinent History Musculoskeletal: Other Male Surgical History: No Pertinent History Other Surgical History: correted "flat feet" in second grade - Social History Smoking Status: Never smoker Exposure to second hand smoke: No Drug Use: none 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) <SHANE BOLAND - Last Filed: 05/21/20 07:33> - Review of Systems Constitutional: No Fever Respiratory: No Dyspnea Cardiac: No Chest Pain Abdominal/Gastrointestinal: No Abdominal Pain Psychological: Other (thoughts of self harm.) All Other Systems: Reviewed and Negative <SHANE BOLAND - Last Filed: 05/21/20 07:33> - Physical Exam General Appearance: alert Eyes, Ears, Nose, Throat Exam: TMs normal, pharynx normal, moist mucous membranes Neck Exam: normal inspection Respiratory Exam: lungs clear Cardiovascular Exam: normal heart sounds Gastrointestinal/Abdominal Exam: soft, normal bowel sounds Extremities Exam: normal range of motion Peripheral Pulses: dorsalis-pedis (R): 2+, dorsalis-pedis (L): 2+ Current Suicidality: denies suicide plan Neurological Exam: alert, normal mood/affect Appearance: appropriate appearance Behavior/Eye Contact/Speech: alert & cooperative Skin Exam: warm, dry SpO2 Interpretation: normal SpO2: 97 O2 Delivery: Room Air <SHANE BOLAND - Last Filed: 05/21/20 07:33> - Nursing Vital Signs Nursing Vital Signs: Initial Vital Signs Pulse Rate 84 05/21/20 01:25 Respiratory Rate 16 05/21/20 01:25 Blood Pressure 148/95 05/21/20 01:25 O2 Sat by Pulse Oximetry 97 05/21/20 01:25 Pain Scale Pain Intensity 0 Ordered Tests: Active Orders 24 hr Category Date Time Status Psychiatric Consult STAT Cons 05/21/20 01:59 Active ACETAMINOPHEN Stat Lab 05/21/20 02:12 Completed CBC W DIFF Stat Lab 05/21/20 02:12 Completed CMP Stat Lab 05/21/20 02:12 Completed ETHYL ALCOHOL Stat Lab 05/21/20 02:12 Completed MAGNESIUM Stat Lab 05/21/20 02:12 Completed SALICYLATE Stat Lab 05/21/20 02:12 Completed UA W/RFX UR CULTURE Stat Lab 05/21/20 03:50 Completed Urine Triage Profile Stat Lab 05/21/20 03:50 Completed Lab/Rad Data: Laboratory Result Diagrams 05/21/20 02:12 05/21/20 02:12 Laboratory Results 05/21/20 05/21/20 05/21/20 Range/Units 03:50 03:50 02:12 WBC (4.0-10.5) K/mm3 RBC (4.1-5.6) M/mm3 Hgb (12.5-18.0) gm/dl Hct (42-50) % MCV (78-100) fl MCH (26-32) pg MCHC (32-36) g/dl RDW (11.5-14.0) % Plt Count (150-450) K/mm3 MPV (7.5-11.0) fl Gran % (36.0-66.0) % Eos # (Auto) (0-0.5) Absolute Lymphs (auto) (1.0-4.6) Absolute Monos (auto) (0.0-1.3) Lymphocytes % (24.0-44.0) % Monocytes % (0.0-12.0) % Eosinophils % (0.00-5.0) % Basophils % (0.0-0.4) % Absolute Granulocytes (1.4-6.9) Basophils # (0-0.4) Sodium (137-145) mmol/L Potassium (3.5-5.1) mmol/L Chloride (98-107) mmol/L Carbon Dioxide (22-30) mmol/L Anion Gap (5-15) MEQ/L BUN (9-20) mg/dL Creatinine (0.66-1.25) mg/dL Estimated GFR ML/MIN Glucose (74-106) mg/dL Calcium (8.4-10.2) mg/dL Magnesium 2.0 (1.6-2.3) mg/dL Total Bilirubin (0.2-1.3) mg/dL AST (17-59) U/L ALT (0-50) U/L Alkaline Phosphatase (38-126) U/L Serum Total Protein (6.3-8.2) g/dL Albumin (3.5-5.0) g/dL Urine Color YELLOW (YELLOW) Urine Appearance CLEAR (CLEAR) Urine pH 5.0 (5-6) Ur Specific [place] 1.030 (1.005-1.025) Urine Protein NEGATIVE (Negative) Urine Ketones NEGATIVE (NEGATIVE) Urine Blood NEGATIVE (0-5) Carlos Manuel/ul Urine Nitrite NEGATIVE (NEGATIVE) Urine Bilirubin NEGATIVE (NEGATIVE) Urine Urobilinogen NEGATIVE (0-1) mg/dL Ur Leukocyte Esterase NEGATIVE (NEGATIVE) Urine WBC (Auto) NONE (0-5) /HPF Urine RBC (Auto) NONE (0-2) /HPF U Epithel Cells (Auto) NONE (FEW) /HPF Urine Bacteria (Auto) NONE SEEN (NEGATIVE) /HPF Urine Mucus (Auto) SLIGHT (NEGATIVE) /HPF Urine Culture Reflexed NO (NO) Urine Glucose NEGATIVE (NEGATIVE) mg/dL Salicylates (2-20) mg/dL Urine Opiates Level NEGATIVE (NEGATIVE) Ur Methadone NEGATIVE (NEGATIVE) Acetaminophen (10-30) ug/ml Urine Barbiturates NEGATIVE (NEGATIVE) Ur Phencyclidine (PCP) NEGATIVE (NEGATIVE) Urine Amphetamine POSITIVE (NEGATIVE) U Benzodiazepine Level NEGATIVE (NEGATIVE) Urine Cocaine NEGATIVE (NEGATIVE) Urine Marijuana (THC) NEGATIVE (NEGATIVE) Ethyl Alcohol (0-10) mg/dL 05/21/20 05/21/20 Range/Units 02:12 02:12 WBC 7.3 (4.0-10.5) K/mm3 RBC 4.81 (4.1-5.6) M/mm3 Hgb 14.1 (12.5-18.0) gm/dl Hct 43.5 (42-50) % MCV 90.4 (78-100) fl MCH 29.3 (26-32) pg MCHC 32.4 (32-36) g/dl RDW 14.2 H (11.5-14.0) % Plt Count 208 (150-450) K/mm3 MPV 10.4 (7.5-11.0) fl Gran % 66.8 H (36.0-66.0) % Eos # (Auto) 0.06 (0-0.5) Absolute Lymphs (auto) 1.30 (1.0-4.6) Absolute Monos (auto) 1.01 (0.0-1.3) Lymphocytes % 17.9 L (24.0-44.0) % Monocytes % 13.9 H (0.0-12.0) % Eosinophils % 0.8 (0.00-5.0) % Basophils % 0.6 (0.0-0.4) % Absolute Granulocytes 4.86 (1.4-6.9) Basophils # 0.04 (0-0.4) Sodium 139 (137-145) mmol/L Potassium 4.1 (3.5-5.1) mmol/L Chloride 105 (98-107) mmol/L Carbon Dioxide 28 (22-30) mmol/L Anion Gap 10.3 (5-15) MEQ/L BUN 17 (9-20) mg/dL Creatinine 1.07 (0.66-1.25) mg/dL Estimated GFR > 60.0 ML/MIN Glucose 100 (74-106) mg/dL Calcium 9.4 (8.4-10.2) mg/dL Magnesium (1.6-2.3) mg/dL Total Bilirubin 0.30 (0.2-1.3) mg/dL AST 38 (17-59) U/L ALT 45 (0-50) U/L Alkaline Phosphatase 63 (38-126) U/L Serum Total Protein 7.8 (6.3-8.2) g/dL Albumin 4.5 (3.5-5.0) g/dL Urine Color (YELLOW) Urine Appearance (CLEAR) Urine pH (5-6) Ur Specific [place] (1.005-1.025) Urine Protein (Negative) Urine Ketones (NEGATIVE) Urine Blood (0-5) Carlos Manuel/ul Urine Nitrite (NEGATIVE) Urine Bilirubin (NEGATIVE) Urine Urobilinogen (0-1) mg/dL Ur Leukocyte Esterase (NEGATIVE) Urine WBC (Auto) (0-5) /HPF Urine RBC (Auto) (0-2) /HPF U Epithel Cells (Auto) (FEW) /HPF Urine Bacteria (Auto) (NEGATIVE) /HPF Urine Mucus (Auto) (NEGATIVE) /HPF Urine Culture Reflexed (NO) Urine Glucose (NEGATIVE) mg/dL Salicylates < 1.0 L (2-20) mg/dL Urine Opiates Level (NEGATIVE) Ur Methadone (NEGATIVE) Acetaminophen < 10 L (10-30) ug/ml Urine Barbiturates (NEGATIVE) Ur Phencyclidine (PCP) (NEGATIVE) Urine Amphetamine (NEGATIVE) U Benzodiazepine Level (NEGATIVE) Urine Cocaine (NEGATIVE) Urine Marijuana (THC) (NEGATIVE) Ethyl Alcohol < 10 (0-10) mg/dL - Progress Progress: re-examined Counseled pt/family regarding: lab results, diagnosis <JOSÉ MIGUEL MENDOZA - Last Filed: 05/21/20 14:16> - Progress Progress Note: Patient is checked out to me at shift change from Dr. Boland with pending behavioral health evaluation. Patient is medically cleared otherwise. Behavioral health has evaluated patient and do not think patient is an imminent threat to himself or anyone else. I have discussed with patient in length and he denies any suicidal ideations. Patient reports he was stressed out from the family situation and has no intent to harm himself. I have asked question multiple times in different ways and he refused any suicidal/homicidal ideations. Patient lives with his father with a good support system and [facility] evaluation recommending safety plan and discharged with outpatient follow-up. Discussed with patient about signs symptoms of worsening needing to call 911 or return to ER which he seems understanding. 05/21/20 14:12 (JOSÉ MIGUEL MENDOZA) <SHANE BOLAND - Last Filed: 05/21/20 07:33> - Departure Departure Disposition: Home Critical Care Time: No <JOSÉ MIGUEL MENDOZA - Last Filed: 05/21/20 14:16> - Departure Clinical Impression: Depressive disorder Condition: Stable Referrals: FERNY CHAPMAN NP [Primary Care Provider] - (tomorrow for re evaluation) Instructions: Suicide Prevention, Depression, Adult (DC) Additional Instructions: Follow-up with [facility] outpatient as recommended. Call for appointment tomorrow. Return to ER/call 911 if has any suicidal or homicidal ideations or worsening of depression.
[2020-05-21 02:15] LABS: Absolute Neutrophil Ct (ANC) 4.86 (1.4-6.9); BASOPHIL % 0.6 % (0.0-0.4); Basophil (Absolute #) 0.04 (0-0.4); Eosinophil % 0.8 % (0.00-5.0); Eosinophil (Absolute #) 0.06 (0-0.5); Hematocrit 43.5 % (42-50); Hemoglobin 14.1 gm/dl (12.5-18.0); Lymphocytes % 17.9 % (24.0-44.0); Mean Cell Volume 90.4 fl (78-100); Mean Corpuscular Hemoglobin 29.3 pg (26-32); Mean Corpuscular Hgb Concent. 32.4 g/dl (32-36); Mean Platelet Volume 10.4 fl (7.5-11.0); Monocyte (Absolute #) 1.01 (0.0-1.3); Monocytes % 13.9 % (0.0-12.0); Neutrophil % 66.8 % (36.0-66.0); Platelet Count 208 K/mm3 (150-450); Red Blood Count 4.81 M/mm3 (4.1-5.6); Red Cell Distribution Width 14.2 % (11.5-14.0); White Blood Count 7.3 K/mm3 (4.0-10.5)
[2020-05-21 02:27] LABS: ACETAMINOPHEN < 10 ug/ml (10-30); ALBUMIN 4.5 g/dL (3.5-5.0); ALKALINE PHOSPHATASE 63 U/L (38-126); ANION GAP 10.3 MEQ/L (5-15); BLOOD UREA NITROGEN 17 mg/dL (9-20); CHLORIDE 105 mmol/L (98-107); Calcium 9.4 mg/dL (8.4-10.2); Carbon Dioxide 28 mmol/L (22-30); Creatinine 1 1.07 mg/dL (0.66-1.25); EST GLOMERULAR FILTRATION RATE > 60.0 ML/MIN; ETHYL ALCOHOL < 10 mg/dL (0-10); Glucose 100 mg/dL (74-106); Potassium 4.1 mmol/L (3.5-5.1); SALICYLATE < 1.0 mg/dL (2-20); SGOT/AST 38 U/L (17-59); SGPT/ALT 45 U/L (0-50); SODIUM 139 mmol/L (137-145); Total Protein 7.8 g/dL (6.3-8.2)
[2020-05-21 03:59] LABS: Appearance CLEAR (CLEAR); Bilirubin NEGATIVE (NEGATIVE); Blood NEGATIVE Ery/ul (0-5); Glucose NEGATIVE (NEGATIVE); Ketones NEGATIVE (NEGATIVE); Leukocyte Esterase NEGATIVE (NEGATIVE); Mucus SLIGHT /HPF (NEGATIVE); Nitrite NEGATIVE (NEGATIVE); Protein,Urine Dip NEGATIVE (Negative); Urobilinogen NEGATIVE mg/dL (0-1)
[2020-05-21 04:07] LABS: Amphetamine,Urine POSITIVE (NEGATIVE); Barbiturate,Urine NEGATIVE (NEGATIVE); Benzodiazepine,Urine NEGATIVE (NEGATIVE); Cocaine,Urine NEGATIVE (NEGATIVE); Methadone,Urine NEGATIVE (NEGATIVE); Opiate,Urine NEGATIVE (NEGATIVE); PCP,Urine NEGATIVE (NEGATIVE); THC,Urine NEGATIVE (NEGATIVE)
[2020-05-21 04:09] LABS: Bacteria NONE SEEN /HPF (NEGATIVE)
[2020-05-21 08:59] VITALS: O2SAT 99
[2020-05-21 14:40] VITALS: BP 119/82; PULSE 98
== END 2020-05-21 14:25 | disposition home or self-care (01) ==
LOC: ED 01:24
DX: F32.9 Major depressive disorder, single episode, unspecified (principal)
CPT/HCPCS: 36415; 80053; 80307; 81001; 83735; 85025; 90791; 99284; Q3014; G0480